=== PATIENT | female | born 1965 | race Caucasian/White ===

== ENCOUNTER → 2021-02-19 15:35 | Outpatient (CLI) | payer OTHER, SELFPAY ==
[2021-02-21 16:41] LABS: Anti-Thyroglobulin AB < 1.0 IU/mL (0.0-0.9); Thyroglobulin, Serum Qt. 162.3 ng/mL (1.5-38.5); Thyroid Peroxidase AB < 9 IU/mL (0-34)
== END ==
PROVIDERS: PCP Family Medicine; Referring Provider Otolaryngology; Visit Provider Otolaryngology
DX: E04.2 Nontoxic multinodular goiter (principal)
CPT/HCPCS: 36415; 84432; 86376; 86800

== ENCOUNTER → 2021-03-14 11:44 | Outpatient (CLI) | payer OTHER, SELFPAY ==
--- NOTE | 2021-03-14 11:51 | US_ITS ---
PROCEDURE: ULTRASOUND GUIDED RIGHT THYROID FNA/BIOPSY. DATE: 03/14/2021. INDICATION: Female, 56 years old. Complex nodule in the right lobe of the thyroid. PHYSICIAN: Bora Sainz M.D. MEDICATIONS: 2% lidocaine administered subcutaneously for local anesthesia. ACCESS SITE: Right - anterior approach. NEEDLE: 25-gauge FNA needle. SPECIMEN: Multiple FNA specimen collected and given to pathology. EBL: None. COMPLICATIONS: None immediate. PROCEDURE: The risks, benefits, and alternatives to the procedure were explained to the patient. The specific risk of hemorrhage requiring further treatment or intervention was detailed and accepted. Written informed consent was obtained. The patient was brought into the ultrasound room and placed in the supine position on the stretcher. An appropriate entry site was identified. The overlying skin was prepped and draped in the usual sterile fashion. 2% lidocaine was administered subcutaneously for local anesthesia. Under ultrasound guidance, a 25-gauge FNA needle was advanced into the lesion. Aspiration was performed and the needle was withdrawn. A total of 3 passes were performed with specimen collected and given to the pathologist who was present during the procedure. Hemostasis was achieved with manual compression. Repeat ultrasound images of the biopsy area was performed which demonstrated no gross bleeding or hematoma. An antibiotic ointment dressing was placed and the patient was given an icepack. The patient tolerated the procedure well without immediate complications. The patient was discharged in stable condition. US/FNA 1st Biopsy w/ US IMPRESSION: Successful ultrasound-guided right thyroid nodule FNA/biopsy, as described above. Electronically Signed: Bora Sainz MD at 12:54 EDT , Service support ,
--- NOTE | 2021-03-14 12:00 | ASPIG_PTH ---
PATIENT: TYRA TOBAR LOC: U#:[id number] AGE/SX: 60/F ROOM: RE03/14/[address]: Dr. Jean Tinajero MD : 1965 BED: DIS: SPEC #: [id number] RECD: 03/14/21 12:30 STATUS: KELECHI RESury #: [id number] SOFY: 03/14/21 12:[address]: Jean Tinajero DEPT: CYTOLOGY RECD BY: Bethany Hickey ENTERED: 03/14/21 13:01 SP TYPE: ASP OUT OTHR DR: Dr. Valeriy Whitten MD Tissues: Thyroid gland, NOS Procedures: FNA Specimen Adequacy Special Stain Group II Surgery Specimen Level IV Cytology Other HEADER OPERATION: Fine needle aspiration of right thyroid PRE-OP DIAGNOSIS: Right thyroid mass TISSUE SUBMITTED: Right thyroid fluid for cytology DIAGNOSIS CYTOLOGY Right thyroid nodule, ultrasound-guided FNA (smears and cell block): Atypical follicular cells of undetermined significance noted in the background of colloid nodule with cystic changes. Adequate for evaluation. See comment. MERT:robert 03/15/2021 COMMENT The specimen is evaluated at the time of FNA by Dr. Coker. Immediate Evaluation = Follicular cells present. Adequate for evaluation. Correlation with clinical, radiologic findings and appropriate follow up are necessary. Case has been reviewed in consultation with Dr. Orr who concurs with the above diagnosis. IDC:AM CYTOLOGY STUDY Slides are reviewed. CYTOLOGY GROSS Received from three passes is 1 ml of bloody and clear fluid labeled with the patient's name, and designated right thyroid mass. Ten imprints and nine paps are made from the submitted fluid and the rest is added to CytoLyt for cell block preparation. Submitted for cytology study. / MERT:robert 03/14/2021 TC:5 CPT: 71683, 49657, 27821
== END ==
LOC: US 11:50
PROVIDERS: PCP Family Medicine; Referring Provider Otolaryngology; Visit Provider Otolaryngology
DX: E04.2 Nontoxic multinodular goiter (principal)
CPT/HCPCS: 10005; 88161; 88172; 88305; 88313

== ENCOUNTER 2021-04-06 12:08 | Observation (INO) | payer OTHER, SELFPAY ==
--- NOTE | 2021-04-03 11:56 | EKG12_ITS ---
Test Reason : PREOP Blood Pressure : / mmHG Vent. Rate : 072 BPM Atrial Rate : 072 BPM P-R Int : 140 ms QRS Dur : 104 ms QT Int : 382 ms P-R-T Axes : 075 086 080 degrees QTc Int : 418 ms Normal sinus rhythm Normal ECG Confirmed by BERTIN TAYLOR, CHINMAY ([id number]), deputy editor in chief ISMAEL HURTADO ([id number]) on 04/04/2021 7:55:13 AM Referred By: Jean Tinajero Confirmed By:CHINMAY DENTON MD
[2021-04-03 13:48] LABS: Anion Gap 7 (5-15); BUN 13 mg/dL (7-18); BUN/Creat Ratio 15.7 RATIO (10-20); Calcium,Total 9.1 mg/dL (8.5-10.1); Chloride 105 mmol/L (98-107); Creatinine, Serum 0.83 mg/dL (0.55-1.02); EST Glomerular Filtration Rate 75 mL/min (>60); Est Glom Filt Rate - Afr Amer 91 mL/min (>60); Glucose 130 mg/dL (74-106); Potassium 3.8 mmol/L (3.5-5.1); Sodium Level 139 mmol/L (136-145)
[2021-04-06] VITALS (10 sets, daily range): BP systolic 118–143; BP diastolic 65–78; PULSE 71–85; RESP 16–18; TEMP 36.3–36.9; O2SAT 97–100; BMI 20.2
--- NOTE | 2021-04-06 | THYROID_PTH ---
PATIENT: TYRA TOBAR LOC: MS3 U#:[id number] AGE/SX: 56/F [place] [facility] [place]: Dr. Jean Tinajero MD : 1965 BED: 1 DIS: 04/07/2021 SPEC #: [id number] RECD: 04/06/21 11:00 STATUS: KELECHI TERRIE #: [id number] SOFY: 04/06/21 00:[address]: Jean Tinajero DEPT: SURGICAL PATHOLOGY RECD BY: Brigitte Borrero ENTERED: 04/06/21 11:24 SP TYPE: THYROID OTHR DR: Dr. Valeriy Whitten MD Tissues: A - Thyroid gland, NOS B - Parathyroid C - Thyroid gland, NOS Procedures: Frozen Section (charge) Surgery Specimen Level IV Surgery Specimen Level V HEADER OPERATION: Total thyroidectomy, frozen section PRE-OP DIAGNOSIS: Nontoxic multinodular goiter TISSUE SUBMITTED: A - Thyroid left lobe, FS, B - Left parathyroid tissue, FS, C - Right thyroid lobe FROZEN SECTION DIAGNOSIS A. Thyroid left lobe, lobectomy: Multinodular goiter. :robert 04/06/2021 B. Left parathyroid, biopsy: Parathyroid tissue. : 04/06/2021 Case has been reviewed in consultation with Dr. Orr who concurs with the above diagnosis. IDC:AM MICROSCOPIC DIAGNOSIS A. Left thyroid lobe, lobectomy: Multinodular goiter. B. Left parathyroid, biopsy: Parathyroid tissue. C. Right thyroid lobe, lobectomy: Multinodular goiter. See comment. :robert 04/10/2021 COMMENT C. The largest nodule shows extensive cystic changes, fibrosis, chronic inflammation and focal calcifications. Please make reference to previous specimen ([id number]) right thyroid nodule, ultrasound-guided FNA with diagnosis of atypical follicular cells of undetermined significance noted in the background of colloid nodule with cystic changes. MICROSCOPIC DESCRIPTION Slides are reviewed. GROSS DESCRIPTION A - Received fresh for frozen section diagnosis labeled with the patient's name is a specimen designated thyroid left lobe. The specimen consists of a thyroid lobectomy specimen weighing 41.7 gm and measuring 5.5 x 6 x 3 cm. The specimen is inked as follows: anterior surface - blue, posterior surface - black. No external parathyroid tissue is identified. Serial sections reveal multiple colloidy nodules. The largest nodule measures 3 cm in greatest dimension. A section from the largest nodule with surrounding tissue is submitted for frozen section diagnosis. More dictation will follow after fixation. / : 04/06/21 Hard Hat Diver sections are submitted in ten cassettes as follows: 1 - frozen section, 2-10 - more sections. / SJ: 04/09/21 B - Received fresh for frozen section diagnosis labeled with the patient's name is a specimen designated left parathyroid tissue. The specimen consists of a piece of stephens soft tissue measuring 0.5 x 0.1 x 0.1 cm. The entire specimen is submitted in one cassette for frozen section diagnosis. / : 04/06/21 C - Received in fixative is one container labeled with the patient's name and designated right thyroid lobe. The specimen consists of a thyroid lobectomy specimen weighing 33 gm and measuring 7 x 4 x 3.5 cm. No external parathyroid tissue is identified. The specimen is inked as follows: anterior surface - blue, posterior surface - black. Serial sections reveal multiple nodules. The largest nodule measures 3.5 x 3 x 3 cm. It shows extensive cystic changes and is filled with hemorrhagic fluid. The largest nodule is present in the middle to lower portion of the thyroid lobe. Hard Hat Diver sections are submitted in 14 cassettes as follows: 1 - most superior portion of thyroid lobe, 2-10 - largest nodule with cystic changes (entirely submitted), 11-14 - construction sales representative sections from the other nodules. / SJ: 04/09/21 TC:5 CPT: 31588 x2, 52559, 24878 x2
[2021-04-06] MEDS: Lactated Ringers 1,000 ML 100 ML IV (09:16)
[2021-04-06] MEDS: Lidocaine 1% /Epi 1:100 (20ml) 20 ML Vial (11:33)
--- NOTE | 2021-04-06 12:01 | PCM.OPRPT ---
Problems Associated Problem List Diagnoses (1) Multinodular goiter: Report of Operation Date of Procedure: 04/06/21 Pre-Operative Diagnosis: Multinodular goiter with suspicious features on biopsy Post-Operative Diagnosis: Same Surgery/Procedure Performed:: Total thyroidectomy with re-implantation of parathyroid gland Description of Surgical Findings:: Haylee is a 56-year-old female with a very large multinodular goiter. Biopsy of the dominant nodule showed atypical cells and elevated thyroglobulin was noted and given the risk of possible neoplasm excision was advised. The risks, alternatives, potential complications, and benefits were discussed at length and any questions answered to the patient and/or caregiver's satisfaction. Witnessed informed consent was obtained in the office, and the patient and/or caregiver was agreeable to proceed. Procedure went as follows: The patient was identified in the preoperative holding and brought to the operating room, placed under general anesthesia and intubated with a neuromonitoring tube. The grounding electrodes were then placed on the chest and confirmed to be operational in accordance with the criminal records technician's directions to allow for recurrent laryngeal nerve monitoring. The neck was then prepped and draped in usual sterile fashion and the planned skin incision was marked 2 finger breadths above the sternal notch with a marking pen. The incisional line was then injected with 1% lidocaine with 100,000 epinephrine for a total of 5 mL. After allowing for vasoconstriction, a 15 blade scalpel was used to make an incision 8 cm in length through the skin and subcutaneous tissues and platysma. A subplatysmal flap was then elevated superiorly and inferiorly to allow for placement of the self-retaining thyroid retractor. The strap muscles were then divided in the midline and beginning on the left side the thyroid lobe dissected in a sub-capsular fashion. Very large inferior pole nodules were encountered. The inferior, middle, and superior thyroid vessels were individually clamped and ligated with a combination of 3-0 silk sutures and vascular clips. The parathyroid glands were identified along the inferior vascular pedicle and preserved. An additional parathyroid was noted to be firmly adherent to the very large left nodule without any independent vascular attachment and this was set aside for reimplantation. The recurrent laryngeal nerve was also identified and followed to its nerve entry point and the thyroid gland dissected free of its attachments to the trachea at Broyle's ligament. This was then transected at the isthmus and sent for pathologic evaluation. Attention was then turned to the contralateral side where similar dissection was carried out and completed, again with preservation of the laryngeal nerve and parathyroid glands. The wound bed was then irrigated saline solution and examined for sites of bleeding. No significant bleeding was encountered and #7 flat drains were then placed into each tracheoesophageal groove and brought out through separate stab incisions in the neck and secured with 3-0 silk sutures. The strap muscles were then re-approximated in the midline with a running 3-0 Vicryl suture followed by interrupted 3-0 Vicryl sutures to close the platysma and subcutaneous tissues. A small pocket was then developed in the left sternocleidomastoid muscle and the previously held parathyroid tissue was then reimplanted after pathologic confirmation of parathyroid. The pocket was then closed with a 3-0 Vicryl suture completing the reimplantation. A 5-0 Monocryl was then used to close the skin followed by Steri-Strips completing the procedure. The patient was then returned to anesthesia, revived and extubated having tolerated the procedure well. Surgeon: Jean Tinajero competency evaluated nurse aide: Al Rose Type of Anesthesia: General Anesthesiologist: Saleem Lopes Specimen's removed: Total thyroid Drains: 2 #7 flat MAKEDA Estimated Blood Loss (mL): 25 mL Fluids Replaced: 1200 mL Grafts/Implants Used: parathyroid tissue Complications none Admit VTE Documentation VTE Present on Admission: No VTE Mechan Device Prophylaxis: SCD's VTE Pharm Prophylaxis ordered?: No Reason prophylaxis not ordered:: Procedure Not Indicated
[2021-04-06 12:57] LABS: Calcium,Total 8.7 mg/dL (8.5-10.1)
[2021-04-06] MEDS: Acetaminophen 500 MG Tablet PO ×2 (18:14→22:55)
[2021-04-06] MEDS: HYDROcodone Bitartrate/Apap 5/325 Tablet PO (20:17)
[2021-04-07 03:36] VITALS: BP 130/61; PULSE 70; RESP 16; TEMP 36.6; O2SAT 100
[2021-04-07] MEDS: HYDROcodone Bitartrate/Apap 5/325 Tablet PO (03:41)
[2021-04-07 07:49] VITALS: BP 129/77; PULSE 71; RESP 14; TEMP 36.4; O2SAT 98
[2021-04-07] MEDS: Calcium (Elemental) 500 MG Tablet PO (07:50)
[2021-04-07] MEDS: Ibuprofen 400 MG Tablet PO (07:50)
--- NOTE | 2021-04-07 09:28 | PCM.PN.SRG ---
Subjective Subjective Patient reports that she has done well overnight with some mild neck pain well controlled with Reform. She denies any perioral numbness or tingling. Objective Data Objective Data Patient is well-appearing with neck incision clean dry and intact. Drain output is minimal overnight and these were removed at the bedside. [place] sign is negative. Vital Signs: Vital Signs Temp Pulse Resp BP Pulse Ox 97.6 F L 71 14 129/77 H 98 04/07/21 07:49 04/07/21 07:49 04/07/21 07:49 04/07/21 07:49 04/07/21 07:49 Oxygen Delivery Method Room Air Weight: 57 kg Body Mass Index (BMI) 20.2 Intake & Output: Intake and Output for Last 24 Hours 04/05/21 04/06/21 04/07/21 23:59 23:59 23:59 Intake Total 1496.67 / 2226.67 1330 / 1330 Output Total Balance 1482.67 / 2204.67 1312 / 1312 Lab / Micro Data Result Diagrams: 04/03/21 12:13 04/03/21 12:13 Labs: Laboratory Results - last 24 hr 04/06/21 12:26 Calcium 8.7 Physical Exam Const alert and oriented x3 General Appearance: cooperative and comfortable HEENT Face and Sinus: normal facial exam and face symmetric Nose: external nose normal External Ear: external ears normal Eyes PERRL and EOMs intact bilaterally Neck General: normal visual inspection and trachea midline Resp normal respiratory effort and normal air movement Cardio regular rate and regular rhythm Extremity normal to inspection Skin General Skin Exam: no breakdown and turgor normal Assessment & Plan Assessment/Plan (1) Multinodular goiter: PLAN: Patient is doing well postoperative day #1 status post total thyroidectomy for multinodular goiter with suspicious nodules. Her drain output has been minimal overnight and these are removed at the bedside. She has no clinical signs of hypocalcemia and her follow-up lab calcium level is pending. She already takes calcium citrate with D at home and should there be decreased calcium level increasing the intake of this agent would be advised. We will plan for discharge today on levothyroxine of 88 mcg and await final pathology report for full assessment of the nodules as biopsy had been with some slight abnormality.
--- NOTE | 2021-04-07 09:32 | PCM.DC ---
Discharge Instructions Diet Discharge Diet: No restrictions Activity Discharge Activity: Return to Normal Activity May shower in (days): 1 Dressing / Incision Call your doctor if your incision/area has: Increased Pain/ Swelling and Swelling at the incision site Call your doctor if you observe: Fever of 101 or Higher and Uncontrolled pain Remove Dressing in: do not remove dressing Cleanse incision/area with: Do not get Incision Wet Follow Up Care Please Follow Up With: Jean Tinajero MD When: 10 days Test Results: Test results from this visit will be discussed in further detail at your follow-up appointment, if applicable. Discharge Plan Admission Admit Date/Time: 04/06/21 12:08 Primary Reason for Your Visit: multinodular goiter Attending Provider: Jean Tinajero Primary Care Provider: Valeriy Whitten Discharge Orders/Prescriptions Prescriptions: New hydrocodone-acetaminophen 5-325 mg Tablet 1 tab PO Q6H PRN PRN (Reason: Pain Score 4-10) 5 Days Qty: 10 RF: 0 acetaminophen 500 mg Tablet 500 mg PO Q4H PRN PRN (Reason: Pain Score 1-10) Qty: 0 RF: 0 ibuprofen 400 mg Tablet 400 mg PO Q6H PRN PRN (Reason: Pain Score 4-10) Qty: 0 RF: 0 levothyroxine 88 mcg tablet 88 mcg PO DAILY Qty: 30 RF: 3 Continued calcium 600 mg Capsule 600 mg PO DAILY RF: 0 estradiol 0.01 % (0.1 mg/gram) Cream 1 g VAGINAL MOFR RF: 0 Referrals / Follow Up: Valeriy Whitten MD [Primary Care Provider] - Disposition Disposition (needs filled in before D/C Order can be placed): Home, self care
[2021-04-07 09:56] LABS: Calcium,Total 8.7 mg/dL (8.5-10.1)
== END 2021-04-07 11:50 | disposition home or self-care (01) ==
LOC: SDC 12:23 → MS3 12:23
PROVIDERS: Admitting Provider Otolaryngology; PCP Family Medicine; Referring Provider Otolaryngology; Visit Provider Otolaryngology
PROC: (CPT 60240; principal; 2021-04-06 09:55)
DX: E04.2 Nontoxic multinodular goiter (principal); G25.81 Restless legs syndrome; E07.9 Disorder of thyroid, unspecified
CPT/HCPCS: 60240; 60512; 36415; 80048; 82310; 88305; 88307; 88331; 93005; 96360; 96361; 99218; J7120; G0378; G0379; J2405

== ENCOUNTER → 2021-07-05 12:43 | Outpatient (CLI) | payer OTHER, SELFPAY | PROVIDERS: PCP Family Medicine; Referring Provider Otolaryngology; Visit Provider Otolaryngology | DX: E89.0 Postprocedural hypothyroidism (principal) | CPT/HCPCS: 36415; 84443 ==

== ENCOUNTER → 2021-10-01 12:07 | Outpatient (CLI) | payer OTHER, SELFPAY ==
[2021-10-01 13:59] LABS: Thyroid Stim Hormone (TSH) 1.71 uIU/mL (0.358-3.74)
== END ==
PROVIDERS: PCP Family Medicine; Referring Provider Otolaryngology; Visit Provider Otolaryngology
DX: E89.0 Postprocedural hypothyroidism (principal)
CPT/HCPCS: 36415; 84443

== ENCOUNTER → 2022-08-06 | Outpatient (CLI) | payer OTHER, SELFPAY ==
--- NOTE | 2022-08-06 07:22 | US_ITS ---
STUDY: ABDOMINAL ULTRASOUND REASON FOR EXAM: Female, 57 years old. ABD PAIN TECHNIQUE: Transabdominal ultrasound was performed with real-time and static gusman scale imaging. TECHNICAL QUALITY: Adequate. COMPARISON: None. FINDINGS: Liver: The liver measures 9.0 cm. There is normal echogenicity of the liver. The bile ducts are within normal limits. There is hepatic color flow. The direction of portal flow is hepatopetal. There is a 3.2 cm x 2.8 cm x 2.4 cm cyst in the right lobe. There is also evidence of millimeter by 8 mm x 8 mm hemangioma in the right lobe of the liver. Portal vein measurement: Gallbladder: Normal distended gallbladder. The gallbladder wall measures 2.0 mm. There is a positive sonographic Lazo''s sign. There is no pericholecystic fluid. There are no gallstones. Common Bile Duct (C.B.D.): The common bile duct measures 7 mm. Pancreas: Normal size of the head, body and tail of the pancreas. There is normal echogenicity of the pancreas. There is no demonstrated pancreatic mass or cyst. Spleen: Normal size of the spleen. The spleen measures 8.6 cm x 3.3 cm x 3.7 cm. Right Kidney: Normal size of the right kidney. The right kidney measures 9.6 x 4 cm x 3.9 cm. Normal renal cortex. The right cortex measures 1.0 cm. There is no demonstrated renal mass or cyst. There is no right hydronephrosis. Left Kidney: Normal size of the left kidney. The left kidney measures 10.7 cm x 3.9 cm x 6 cm. Normal renal cortex. The left cortex measures 1.9 cm. There is no demonstrated renal mass or cyst. There is no left hydronephrosis. Aorta: Unremarkable I.V.C.: The IVC is patent. There is no ascites. US/Abdomen Complete IMPRESSION: Right hepatic cyst. Small hemangioma in the right lobe of liver. Electronically Signed: Bora Sainz MD at 15:27 EDT ,
== END | disposition home or self-care (01) ==
LOC: US 07:21
PROVIDERS: PCP Family Medicine; Referring Provider Family Medicine; Visit Provider Family Medicine
DX: R10.84 Generalized abdominal pain (principal)
CPT/HCPCS: 76700

== ENCOUNTER → 2025-03-03 | Outpatient (CLI) | payer OTHER, SELFPAY ==
--- NOTE | 2025-03-03 08:16 | BD_ITS ---
PROCEDURE: DEXA BONE DENSITY STUDY 03/03/2025 REASON FOR EXAM: F, age 60 y/o . Postmenopausal. TECHNIQUE: DXA scan of sites with data reported below. REFERENCE LINKS: ISCD Adult Positions COMPARISON: None FINDINGS: BMD and T-SCORES Lumbar spine: 0.973 g/cm2, T-score -0.4 Levels: L1 through L4 Left femoral neck: 0.672 g/cm2, T-score -1.6 Femoral neck comparison data not recommended for monitoring change. Left total hip: 0.781 g/cm2, T-score -1.3 Right femoral neck: 0.667 g/cm2, T-score -1.6 Femoral neck comparison data not recommended for monitoring change. Right total hip: 0.803 g/cm2, T-score -1.1 The World Health Organization has defined the following categories based on bone density: Normal bone density: T-score equal to or greater than -1.0 Osteopenia: T-score between -1.0 and -2.5 Osteoporosis: T-score equal to or less than -2.5 The patient does meet the pharmacological treatment recommendations for prevention of osteoporosis. BD/Dexa Bone Density Study IMPRESSION: OSTEOPENIA. Recommend follow-up as clinically warranted. Reading Location: [facility]
== END | disposition home or self-care (01) ==
PROVIDERS: PCP Family Medicine; Referring Provider Nurse Practitioner Family; Visit Provider Nurse Practitioner Family
DX: Z78.0 Asymptomatic menopausal state (principal)
CPT/HCPCS: 77080